=== PATIENT | female | born 1975 | race Caucasian/White ===

== ENCOUNTER 2025-01-24 08:13 | Outpatient (AMB) | payer OTHER, SELFPAY ==
--- NOTE | 2025-01-24 10:52 | A.OFFVIS_ITS ---
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 Start time: 10.45am, End time: 11.25am HPI Comments Details: Previous weight loss efforts: sleeve gastrectomy (initial weight: 279lbs, preop weight: 249 lbs, lowest postop weight: 193lbs) Wakes up: 6am, Sleeps: 9.30pm Breakfast: 8am (bagel with cream cheese) Lunch: 2pm (burger with fries, salad with chicken) Dinner: 5pm (ham sandwich, pizza) Snacks: 7pm (popcorn) Exercise: none Beverages: Coffee: (1 iced coffee/d with creamer), Tea: rarely, Soda: none, Juice: rarely, ETOH: 1/wk PFSH Medical History (Updated 01/24/25 @ 10:57 by Anshu Resendiz MD) Morbid obesity Surgical History (Updated 10/04/24 @ 09:01 by Prisca Lima CMA) S/P gastric sleeve procedure Hx of hysterectomy Family History (Updated 10/04/24 @ 09:01 by Prisca Lima CMA) Mother No problems noted. Father No problems noted. Social History (Updated 10/04/24 @ 09:00 by Prisca Lima CMA) Alcohol intake: never Patient Tobacco Use Status: Never used Tobacco Telehealth Telehealth Telehealth Platform: Telephone Location of provider rendering services: practice address Location of patient: address on file Patient Identification confirmed using: Name, : Yes Telehealth method: voice only Patient verbally consented to treatment: Yes Patient verbally consented to billing insurance company: Yes Patient informed of any privacy concerns related to visit: Yes Minutes spent on Phone/Video with Pt.: 40 Assessment & Plan Assessment & Plan (1) Morbid obesity: Code(s): E66.01 - Morbid (severe) obesity due to excess calories Category: Medical Plan: Dear Ibis, It was a pleasure talking to you?today. This is the summary of what we discussed today: ?1. As we discussed, based on your present BMI you are approximately 145lbs overweight. In my opinion, for any weight loss strategy to be successful should have a high probability to help you lose at least 130lbs out of 145lbs of the extra weight you carry. ?We discussed in detail the available therapeutic options: ?1) our lifestyle intervention program that has an average weight loss of 10% in 3 months.?Some patients continue it for longer and have lost over 50lbs but this is not common. Our lifestyle program can be provided by me. I will provide you with a link to use the anabel if you choose to do so. We use protein shakes and p rotein bars to replace some of the meals of the day and cover your appetite better. We will decide together the exact combination. ?2) Weight loss medications: these can be used in conjunction with our lifestyle program or you may choose to use them without following a lifestyle program from my program but your own. One option is the Phentermine pill which is affordable as self pay option. It is well tolerated and most common side effects include blood pressure elevation, dry mouth, difficulty sleeping and heart palpitations. It?s a temporary solution however and most patients tend to put the weight back once the medication is stopped. 3) Your insurance does not cover the new weight loss shots. We also discussed that you can self pay for the weight loss injections and the cost is $249 for the first month and $499 for any other month thereafter. These payments go to the drug company directly and not to us. As we discussed, this is not a termite control servicer solution, as most patients put all the weight back once they are off the medication. There is also an option to get generic versions from compound pharmacies at cheaper rates but their efficacy and how they are manufactured is not that clear. ?4) We also discussed about the lap sleeve gastrectomy revision. 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 This will address the reflux as well as the frequent runs to the bathrooom you experience. I will need to do an upper endoscopy to assess the anatomy of your sleeve and see if it could be improved. ??I emphasized the importance of close follow-up, adherence to instructions and good communication. The surgery does not replace the need to change your lifestlyle which is the cause of the obesity problem. The surgery provides the motivation to try again to change your lifestyle, it reduces the appetite and make the transition to a better lifestyle easier and doubles the amount of weight you would lose compared to doing the lifestyle change without the surgery. You will need to be on a liquid diet with protein shakes for 2 weeks before surgery to maximize weight loss and boost your nutritional status to recover better from surgery and also for the first two weeks after surgery to let the stomach heal before we introduce other foods. After the first 2 weeks we will introduce protein bars and soft foods like scrambled eggs, cottage cheese and yogurt and after the 6th week will introduce meat, fish and cooked vegetables in small amounts. Over time you should be able to eat everything in small amounts. Side effects like nausea, vomiting, heartburn or abdominal pain are not common in the practice unless you are not following in the practice. This operation requires lifetime commitment to following in our practice and communication with me. You will much less weight and experience side effects if you don?t communicate or not following in the practice. Complications are rare and in our practice is about 1/10 of the national average. 5) Very Important: We do extensive research in this practice. In very recent research we did, we found that patients who did the lifestyle program without medications followed by weight loss surgery, lost twice as much as they would lose if they used the shots for the same period of time and with the two groups being completely matched in terms of demographics and starting weights. Another research study we did found that when we compared patients who did our lifestyle program without or with the weight loss shots, they lost the same weight but they did not lose any muscle mass. The patients who used the shots lost about 3% of their muscle mass in 3 months which translates to 5-15lbs of actual muscle mass depending on each patient's initial weight. That's not good because it makes you frail and weak and reduces your metabolism. In another research study we did, we found that losing 10-20% of your initial weight before the weight loss surgery, followed by surgery at the lowest possible weight, gives you a significant boost in alf weight loss 6 years or more after surgery, that makes a difference in the long-term success. Preoperative weight loss is not commonly used by many practices especially at this magnitude, but it is our philosophy and makes a huge difference. Please let me know what you decide.? Dr. Resendiz [phone]?
== END 2025-01-24 15:31 | disposition home or self-care (01) ==
LOC: HO.HBS 08:13
PROVIDERS: PCP Internal Medicine; Visit Provider Surgery
DX: E66.01 Morbid (severe) obesity due to excess calories (principal)
CPT/HCPCS: 99203